=== PATIENT | female | born 1935 | race Caucasian/White ===

== ENCOUNTER 2018-04-19 19:33 | Inpatient (IN) | payer MEDICARE, OTHER ==
[~2018-04-19] VITALS: Ht 167.6 cm; Wt 100.9 kg
--- NOTE | ~2018-04-19 | CN ---
PATIENT NAME:JANICE ISABEL MEDICAL RECORD: [id number] : 39 LOCATION:[facility]12 ADMIT DATE: 04/19/18 ACCOUNT: [id number] CONSULTING PHYSICIAN: HARPAL ESTRADA REFERRING PHYSICIAN: ROWENA AYALA DO DATE OF CONSULTATION: 04/24/2018 HISTORY: This is an 82-year-old female who has had recurrent urinary tract infection of unknown etiology. The patient presented to the Emergency Room with fever and chills. The patient had had nausea and vomiting for 2 days prior to coming to the Emergency Room. The patient was noted to have urinary tract infection and bacteremia. She was started on Rocephin. She was also noted to have left lung pneumonia and small left pleural effusion. The patient was noted to have torsades with ventricular tachycardia and code blue was called. The patient was shocked. The patient woke up and was placed on BiPAP and transferred to the intensive care unit. The patient is awake and alert, on the BiPAP when seen. PAST MEDICAL HISTORY: Remarkable for chronic constipation alternating with diarrhea. She is also on atrial fibrillation, coronary artery disease, and hypertension. Also has hypothyroidism. PAST SURGICAL HISTORY: Include cataracts, hysterectomy, esophageal dilatation, IVC filter, right patellar repair, lumbar laminectomy, and left total knee surgeries. ALLERGIES: No known allergies. MEDICATIONS ON ADMISSION: Include hydrocodone 10/325 q. 8 hours p.r.n., Eliquis 5 mg b.i.d., Pepcid AC 20 mg b.i.d., amiodarone 50 mg daily, lisinopril 10 mg daily, amlodipine 10 mg daily, Januvia 50 mg daily, Lasix 40 mg daily, ferrous sulfate 325 mg daily, ascorbic acid 500 mg daily, fish oil 1000 mg daily, vitamin D3 two capsules daily, TriCor one tablet at bedtime, melatonin 10 mg at bedtime, Protonix 40 mg at bedtime, levothyroxine 25 mcg daily, gabapentin 300 mg t.i.d., Lunesta 2 mg at bedtime. FAMILY HISTORY: Remarkable for coronary artery disease. SOCIAL HISTORY: The patient does not drink or use illicit drugs. The patient used to smoke in the past. REVIEW OF SYSTEMS: Unobtainable because of BiPAP. PHYSICAL EXAMINATION: GENERAL: Reveals elderly female, who is in no acute distress, lying supine in bed. VITAL SIGNS: Temperature 98.2, heart rate of 44, respiratory rate 16, blood pressure 124/74, and saturations 99%. SHEENT: Unremarkable. There is no mottling or livedo. The patient is normocephalic. Pupils are equal and reactive. NECK: Supple. There is no adenopathy. Trachea is midline. CHEST: Shows good airflow bilaterally with mild left crackles. CARDIAC: Shows no jugular venous distention, murmur, or gallop. ABDOMEN: Benign without any tenderness or masses. EXTREMITIES: Show no clubbing, cyanosis, or edema. CONSULT REPORT [id number] ALINA ISABELFLAKITA DIAZ LABORATORY DATA: Lab exam shows white count of 12.3, hemoglobin 10.6, and platelet count is 224. Arterial blood gas; pH 7.42, pCO2 of 35, pO2 of 56 on 5.5 liters. Chemistry is remarkable for sodium of 136, potassium 4.3, creatinine is 1.9. D-dimer is 0.68. Urine culture and blood culture are showing E. coli. DIAGNOSTIC DATA: Chest x-ray showed interval worsening of left-sided pneumonia with left parapneumonic effusion. ASSESSMENT: 1. Cardiopulmonary arrest secondary to torsades. The patient has been on amiodarone. The patient was treated with magnesium with improvement. Chest x-ray showed hypoxemic respiratory failure. This may be due to V-tach, pneumonia, or parapneumonic effusion. The patient is doing well on BiPAP now, but repeat arterial blood gas. 2. Bacteremia. We will obtain plasma lactic acid level. The blood gases were normal. 3. Acute respiratory failure secondary to prerenal because the patient is taking Lasix and also having diarrhea. We will give bolus of normal saline. 4. Pneumonia. We will treat with antibiotics. The patient has a small left pleural effusion. If it increases, the patient will need thoracentesis. 5. Recurrent urinary tract infection, etiology is not known. She may need urologic evaluation. 6. Chronic atrial fibrillation, on anticoagulation. 7. Diabetes mellitus type 2. 8. History of constipation. PLAN: 1. IV bolus of saline. 2. Continue amiodarone for atrial fib as well as anticoagulation. 3. Continue antibiotic, Rocephin. 4. The family wants her to be on DNR, full code status. Total amount of time spent is 60 minutes, talking to nurse and respiratory therapist as well as family at the bedside. TRANSINT:[id number] Voice Confirmation ID: [id number] DOCUMENT ID: [id number] HARPAL ESTRADA at 0836 CC: [id number] DICTATION DATE: 04/24/18 1511 MACHINE ZIPPER TRIMMER: 04/24/18 1729 ADM IN [place] [id number] [place] [address]
--- NOTE | ~2018-04-19 | PN ---
PATIENT:JANICE ISABEL MEDICAL RECORD: [id number] LOCATION:D.ICU D.231 ADMISSION DATE: 04/19/18 PROGRESS NOTE DATE OF SERVICE: 04/28/2018 SUBJECTIVE: This is an 82-year-old female who was admitted with urinary tract infection and bacteremia with Escherichia coli. The patient has also had chronic atrial fibrillation, on amiodarone. The patient had cardiac arrest secondary to V-tach with torsades. The patient was resuscitated, brought to the ICU on BiPAP. The patient complained of chest pain, unable to breathe deep. She was noted to have pulmonary edema, hypertension, was given some fluids. Cardiology consultation was obtained. She had a good left ventricular ejection fraction. The patient was doing well without BiPAP. The patient complained of shortness of breath because of pain. She has been having p.o. Lasix for pulmonary edema and weight has continued to increase. The patient had an uneventful night. There is no fever or chills. PHYSICAL EXAMINATION: GENERAL: Reveals a well-developed, well-nourished female, obese, in no acute distress. VITAL SIGNS: Temperature 99.0, heart rate 61, respiratory rate of 12, blood pressure 180/81, saturation 92%. SHEENT: Unremarkable. NECK: Supple. No adenopathy. Trachea is midline. CHEST: Showed some rales. There is chest wall tenderness. HEART: Shows no jugular venous distention, murmur or gallops. ABDOMEN: Benign, without any tenderness. EXTREMITIES: Shows no clubbing, cyanosis or edema. LABORATORY DATA: Showed a white count of 13.8, hemoglobin is 10, platelet count is 236,000. Arterial blood gas: pH 7.34, pCO2 of 41, pO2 of 70, bicarbonate 22. This is on high-flow nasal cannula. Chest x-ray showed interstitial prominence, has enlarged cardiomediastinal silhouette. ASSESSMENT AND PLAN: 1. Ventricular tachycardia with torsades secondary to infection and medications. 2. Escherichia coli bacteremia. The patient is on antibiotics. The patient still has decreasing leukocytosis. 3. Pulmonary edema, congestive heart failure secondary to transient decrease in left ventricular function. No CPR. 4. Possible pneumonia, unchanged. We will add Levaquin to antibiotics. 5. Hypertension, accelerated. 6. Hydralazine p.r.n. to control blood pressure. TRANSINT:[id number] Voice Confirmation ID: [id number] DOCUMENT ID: [id number] PROGRESS NOTE [id number] JANICE ISABEL AUGUSTINE K at 1418 CC: [id number] DICTATION DATE: 04/28/18 1032 BIOMASS PLANT MANAGER: 04/28/18 1126 ADM IN [facility] [address] [id number]
--- NOTE | ~2018-04-19 | EC ---
PATIENT:JANICE ISABEL DATE OF SERVICE: 04/19/18 SEX: F MEDICAL RECORD: [id number] DATE OF : 37 LOCATION:[place] [address] AGE OF PATIENT: 82 ADMISSION DATE: 04/19/18 REFERRING PHYSICIAN: INTERPRETING PHYSICIAN: PARUL NOLAN MD ECHOCARDIOGRAM REPORT ECHO CHARGES 4 ECHO COMPLETE Date: 04/23 CLINICAL DIAGNOSIS: AFIB ECHOCARDIOGRAPHIC MEASUREMENTS (adult normal given) AC root (d.<3.7cm) 3.7 cm LV Septum d (<1.2 cm> 1.8 cm Valve Excursion 2.0 cm LV Septum (systole) 2.0 cm Left Atria (s.<4.0cm> 4.4 cm LVPW d(<1.2cm) 1.4 cm RV (d.<2.3cm) 4.1 cm LVPW (sytole) 1.6 cm LV diastole(<5.6CM) 5.9 cm MV E-F(>70mm/sec) cm LV systole 4.8 cm LVOT Diameter 2.0 cm MV exc.(>10mm) 1.4 cm Est.ejection fraction (50-75%) % DOPPLER: LVIT cm/sec A cm/sec E 145 cm/sec LA cm/sec RVSP 44 mmHg LVOT 102 cm/sec AOP1/2T m/s Asc. Ao 126 cm/sec RVOT 114 cm/sec RA cm/sec PA 153 cm/sec AV Gradient Peak 6.33 mmHg AV Mean 2.89 mmHg AV Area 2.5 cm MV Gradient Peak 13.41mmHg MV Mean 4.60 mmHg MV Area cm COMMENTS: Tracer Bullet Charging Machine Operator: Yandel PEACOCK Documentation Spec: 1 Dr. Nolan TAPE# PACS Pericardial Effusion N DATE OF SERVICE: 04/23/2018 ECHOCARDIOGRAM FINDINGS: 1. Left ventricular chamber size is mildly dilated. Left ventricular systolic function is markedly reduced. Overall ejection fraction is estimated at 15% to 20%. 2. Left atrium is enlarged at 4.4 cm. Right atrium and right ventricle chamber sizes are as well mildly dilated. ECHOCARDIOGRAM REPORT [id number] JANICE ISABEL 3. Valvular structures have normal structure and motion. 4. Doppler interrogation reveals moderate mitral regurgitation and moderate tricuspid regurgitation. No other valvular insufficiency or stenosis. Pulmonary systolic pressure is estimated at 44 mmHg. 5. No evidence of pericardial effusion or left ventricular thrombus. TRANSINT:[id number] Voice Confirmation ID: [id number] DOCUMENT ID: [id number] PARUL NOLAN MD at 1642 CC: [id number] DICTATION DATE: 04/24/18 1209 COOK STARCH: 04/24/18 1305 ADM IN [place] [place] [address]
--- NOTE | ~2018-04-19 | PN ---
PATIENT:JANICE ISABEL MEDICAL RECORD: [id number] LOCATION:D.[facility] ADMISSION DATE: 04/19/18 PROGRESS NOTE DATE OF SERVICE: 04/29/2018 SUBJECTIVE: This 82-year-old female who was admitted for Escherichia coli bacteremia as well as Escherichia coli urinary tract infection. The patient also had chronic atrial fibrillation, on amiodarone. The patient had a ventricular tachycardia with torsades, was resuscitated and brought to the ICU, on BiPAP. The patient did very well. She was seen by cardiology, was felt to have torsades secondary to medications and bacteremia. The patient has been doing well. She had what appeared to be pulmonary edema, this improvement, and she also has severe chest pain and given pain medications. The patient has been tolerating physical therapy. Her heart rate is also improved. There is no fever or chills. PHYSICAL EXAMINATION: GENERAL: Reveals an awake and alert female who is eating breakfast in bed. VITAL SIGNS: Temperature 98.2, heart rate of 66, respiratory rate of 12, blood pressure 150/66, saturation is 97% on 7 liters. SHEENT: Unremarkable. NECK: Supple. No adenopathy. Trachea is midline. There is no thyromegaly. CHEST: Showed severe chest wall tenderness to palpation. Good air flow bilaterally. There are no rales, crackles, or wheezes. HEART: Shows no jugular venous distention, murmurs, rubs or gallops. ABDOMEN: Benign, without any tenderness. There is no distention, no masses. EXTREMITIES: Shows no clubbing, cyanosis or edema. LABORATORY DATA: Showed, CBC show white count of 14.2, hemoglobin 10.1, platelet count is 386,000. Arterial blood gas: pH 7.37, pCO2 of 42 and pO2 of 71, bicarbonate is 24 on 7 liters high flow oxygen. Chemistry is remarkable for creatinine is 1.6, BUN is 29. Chest x-ray showed interstitial prominence in the lungs, patchy airspace disease is on left mid to lower lung, right base with small pleural effusion with no acute change. ASSESSMENT: 1. Escherichia coli urinary tract infection. 2. Cardiopulmonary arrest secondary to ventricular tach with the torsades syndrome. Has chronic atrial fibrillation, on anticoagulation and amiodarone. 3. Pulmonary edema, switched to IV Lasix. 4. Pneumonia, the patient is currently on antibiotics. DISCUSSION: 1. Neuropsychiatric: There are no focal signs. Mental status is back to normal according to . 2. Cardiovascular: The patient had V-tach, cardiac arrest with torsades. She also has chronic atrial fibrillation and heart rate is normal. She has radiographic evidence of edema. 3. Pulmonary/respiratory: The patient has high flow oxygen requirement at 7 liters. She is on bronchodilators as well as antibiotics for pneumonia. PLAN: 1. IV Lasix 40 mg. 2. Continue physical therapy. PROGRESS NOTE [id number] JANICE ISABEL 3. Pain medications for chest wall pain. 4. Continue Eliquis. Discussed with nurse and at bedside. TRANSINT:[id number] Voice Confirmation ID: [id number] DOCUMENT ID: [id number] HARPAL ESTRADA at 0942 CC: [id number] DICTATION DATE: 04/29/18 0936 YOUTUBER: 04/29/18 1220 ADM IN [place] [id number] [place] [address]
--- NOTE | ~2018-04-19 | HP ---
PATIENT: JANICE ISABEL MEDICAL RECORD: [id number] ACCOUNT: [id number] LOCATION:D.[facility] : 37 ADMISSION DATE: 04/19/18 HISTORY AND PHYSICAL EXAMINATION HISTORY OF PRESENT ILLNESS: An 82-year-old female presents with 2 days of fever, chills, episodic nausea and vomiting, diffuse abdominal pain, constipation. PAST MEDICAL HISTORY: Significant for chronic AFib, diabetes, hyperlipidemia, GERD, hypothyroid, hypertension, chronic kidney disease, chronic back pain, sees pain management. ALLERGIES: No known drug allergies. MEDICATIONS: As per med list. REVIEW OF SYSTEMS: GENERAL: Loss of appetite with acute illness. Denies any significant change in weight. HEENT: No cephalgia, visual changes, tinnitus, epistaxis, or dysphagia. CARDIOVASCULAR: Denies chest pain. History of chronic atrial fibrillation. PULMONARY: Denies hemoptysis. Admits mild shortness of breath, nonproductive cough. GASTROINTESTINAL: Denies hematemesis, hematochezia or melena. Does admit constipation. GENITOURINARY: Burning with urination. MUSCULOSKELETAL: Chronic back pain. No acute changes. ENDOCRINE: Denies polyuria, polydipsia, or polyphagia. PHYSICAL EXAMINATION: VITAL SIGNS: Temperature on admission 102.2, presently 98.4, blood pressure 154/54, heart rate 84, respirations 18, O2 sats 98%, O2 sats on admission were 85%. NEUROLOGIC: The patient is alert, oriented. HEENT: Normocephalic, atraumatic. Eyes: Pupils are equally round and reactive to light and accommodation. Extraocular muscles are intact. Conjunctivae not injected. Ears: Canals patent, TMs are intact. Nose: Nares patent without drainage. Throat: No erythema, no exudates. NECK: Supple. No lymphadenopathy, no JVD. HEART: Irregularly irregular. LUNGS: Clear to auscultation bilaterally. Breathing is nonlabored. She has completed a breathing treatment. ABDOMEN: Soft, nontender. Bowel sounds positive. EXTREMITIES: Present times 4. NEUROLOGIC: Intact. No focal deficits. SKIN: Warm and dry. No rash. LABORATORY AND DIAGNOSTIC DATA: Lactic acid is mildly elevated at 2.1. ABG: pH of 7.42, pCO2 of 34, pO2 of 56. Urinalysis; yellow, hazy, 2+ blood, 2+ leukocyte esterase and many bacteria. D-dimer mildly elevated at 0.68. V/Q scan negative for any perfusion defects. Chemistry shows a sodium of 138, potassium 4.1, chloride 102, bicarbonate 22.4, BUN 39, creatinine 2.3, glucose is 209. CK is 28, CK-MB is 0.8, troponin is 0.055. ProBNP elevated at 9481. Amylase is 20, lipase 84. CBC: White count 11.2, hemoglobin 11.5, hematocrit HISTORY AND PHYSICAL [id number] CHALO,JANICE EMILY 35.8, platelets 192. Blood cultures; gram-negative gabriela. Urine culture with gram-negative gabriela. ASSESSMENT AND PLAN: 1. Sepsis secondary to urinary tract infection. The patient was started on Levaquin. In the Emergency Room, this is changed to Rocephin due to QT prolongation of Levaquin and her cardiac arrhythmia. Cautious IV fluids. We will place on telemetry. We will obtain CT of the abdomen and pelvis. 2. Constipation. Milk of mag p.r.n. 3. Chronic atrial fibrillation. Continue current medications. 4. Chronic kidney disease, monitor. 5. Possible early pneumonia. Rocephin as above. Awaiting sensitivities from cultures. 6. Diabetes. We will hold Januvia, change to sliding scale insulin, low resistance. 7. Hypothyroid, resume levothyroxine 25 mcg daily. 8. With her chronic atrial fibrillation, we will also place on telemetry. TRANSINT:[id number] Voice Confirmation ID: [id number] DOCUMENT ID: [id number] ROWENA AYALA DO at 1733 CC: [id number] DICTATION DATE: 04/20/18813 GEOTECHNICAL ENGINEER: 04/20/18 0920 ADM IN [facility] [address] [place] [address]
--- NOTE | ~2018-04-19 | PN ---
PATIENT:JANICE ISABEL MEDICAL RECORD: [id number] LOCATION:D.[facility] ADMISSION DATE: 04/19/18 PROGRESS NOTE DATE OF SERVICE: 04/30/2018 This is an 82-year-old female who was admitted for Escherichia coli urinary tract infection and bacteremia. The patient was treated with antibiotics, subsequently had cardiopulmonary arrest with ventricular tachycardia with torsades. The patient was resuscitated and brought into the intensive care unit and was placed on BiPAP. The patient did well. She had pulmonary edema, at that time was given Lasix with clearance. The patient also had bradycardia, which has improved. The patient was transferred to the medical floor and has been doing well. The patient has some mild chest pain from percussion and doing CPR. She denies any shortness of breath. There is no fever. PHYSICAL EXAMINATION: GENERAL: She is an elderly lady who is in no acute distress. VITAL SIGNS: Temperature 98.1, heart rate 73, respiratory rate of 16, blood pressure of 156/59. SHEENT: Unremarkable. NECK: Supple, no adenopathy. Trachea is midline. LUNGS: Exam shows anterior chest wall tenderness. There is no accessory muscle use. There are no rales. HEART: Exam shows no jugular venous distention, no murmur or gallop. ABDOMEN: Benign, without any tenderness or masses. EXTREMITIES: No clubbing, cyanosis or edema. LABORATORY DATA: White count 10.1, hemoglobin 9.7, and platelet count is 217,000. Chemistry is remarkable except for creatinine 1.5. BUN is 27. Chest x-ray shows significant improvement in congestive heart failure. ASSESSMENT: 1. Escherichia coli bacteremia and urinary tract infection. 2. Status post cardiopulmonary arrest secondary to ventricular tachycardia and torsades. The patient improved. There was no encephalopathy or any sequelae. 3. Chronic atrial fibrillation. The patient's rate is normal. PLAN: 1. Continue antibiotics. 2. Pain medications for chest wall pain. 3. Continue full anticoagulation. 4. Physical therapy for ambulation. TRANSINT:[id number] Voice Confirmation ID: [id number] DOCUMENT ID: [id number] PROGRESS NOTE [id number] JANICE ISABELYCE HARPAL ESTRADA at 0808 CC: [id number] DICTATION DATE: 04/30/18 1631 MANAGER MEDIA RELATIONS: 04/30/18 2234 ADM IN [facility] [address] [id number]
--- NOTE | ~2018-04-19 | PN ---
PATIENT:JANICE ISABEL MEDICAL RECORD: [id number] LOCATION:D.[facility] D.231 ADMISSION DATE: 04/19/18 PROGRESS NOTE DATE OF SERVICE: 04/25/2018 SUBJECTIVE: This is an 82-year-old female who was admitted for urinary tract infection and pneumonia with Escherichia coli in blood cultures as well as urine. The patient had sudden onset of V-tach with torsade. The patient was resuscitated with a magnesium as well as CPR. The patient was transferred to the intensive care unit. The patient has been bradycardic, but blood pressure has been good. Dopamine was ordered to increase heart rate. The patient has been awake and alert this morning. She was seen by cardiology and felt torsade was probably due to an infectious process. Echo will be done and reassessed. The patient's bradytachy arrhythmia has been for a while, being treated with amiodarone as well as anticoagulation. The patient is awake and alert, answers questions. She is off BiPAP this morning. PHYSICAL EXAMINATION: GENERAL: Reveals an elderly female, obese, in no acute distress. VITAL SIGNS: Temperature 98.9, heart rate of 51, respiratory rate of 12, blood pressure 105/61, saturation is 97%. SHEENT: Unremarkable. The patient is normocephalic. Pupils are equal and reactive. NECK: Supple. There is no adenopathy. Trachea is midline. CHEST: Shows some chest wall tenderness on palpation. There are some mild crackles on coughing. CARDIAC: Shows no jugular venous distention, murmur or gallops. ABDOMEN: Benign, without any tenderness or mass or distention. EXTREMITIES: Shows no clubbing, cyanosis or edema. LABORATORY DATA: Showed a white count of 12.3, hemoglobin 10.6 and platelet count of 224. Blood gas: pH 7.41, pCO2 of 38, pO2 of 109 on 100% FiO2 on BiPAP. Chemistry is remarkable for potassium 3.9, creatinine is 1.18. Chest x-ray showed diffuse increase in interstitial and alveolar infiltrates throughout the lungs, mild focal infiltrates in the left upper lobe of the lung with increase in prominence from prior examination, moderate left pleural effusion. ASSESSMENT: 1. Ventricular tachycardia secondary to torsades as stated. 2. Escherichia coli bacteremia. 3. Urinary tract infection with Escherichia coli. 4. Pulmonary edema. 5. Tachybrady arrhythmias. DISCUSSION: 1. Neuropsychiatry: There is no evidence of encephalopathy and there are no focal signs. 2. Cardiovascular: The patient has tachybrady arrhythmias. Currently, is on amiodarone. Cardiology has been consulted. Echocardiogram will be ordered and reviewed. 3. Pulmonary/respiratory: The patient is on bronchodilators. She is also on BiPAP as needed at night. PROGRESS NOTE [id number] CHALO,JANICE DIAZ PLAN: 1. Continue bronchodilators. 2. Continue antibiotics. 3. Continue anticoagulation. TRANSINT:[id number] Voice Confirmation ID: [id number] DOCUMENT ID: [id number] HARPAL ESTRADA at 0836 CC: [id number] DICTATION DATE: 04/25/18 1306 TANK BOTTOM ASSEMBLER: 04/25/18 1424 ADM IN [place] [id number] [place] [address]
--- NOTE | ~2018-04-19 | EC ---
PATIENT:JANICE ISABEL DATE OF SERVICE: 04/19/18 SEX: F MEDICAL RECORD: [id number] DATE OF : 37 LOCATION:[place] [address] AGE OF PATIENT: 82 ADMISSION DATE: 04/19/18 REFERRING PHYSICIAN: INTERPRETING PHYSICIAN: VALERIANO EVERETT MD ECHOCARDIOGRAM REPORT ECHO CHARGES 5 ECHO LIMITED Date: 04/25 CLINICAL DIAGNOSIS: REASSESS EF AND WALL MOTION ABNORMALITIES ECHOCARDIOGRAPHIC MEASUREMENTS (adult normal given) AC root (d.<3.7cm) 3.7 cm LV Septum d (<1.2 cm> 1.9 cm Valve Excursion 2.0 cm LV Septum (systole) 2.0 cm Left Atria (s.<4.0cm> 3.4 cm LVPW d(<1.2cm) 1.9 cm RV (d.<2.3cm) 4.1 cm LVPW (sytole) 1.6 cm LV diastole(<5.6CM) 5.5 cm MV E-F(>70mm/sec) cm LV systole 3.9 cm LVOT Diameter 2.0 cm MV exc.(>10mm) 1.4 cm Est.ejection fraction (50-75%) % DOPPLER: LVIT cm/sec A cm/sec E 145 cm/sec LA cm/sec RVSP 44 mmHg LVOT 102 cm/sec AOP1/2T m/s Asc. Ao 126 cm/sec RVOT 114 cm/sec RA cm/sec PA 153 cm/sec AV Gradient Peak 6.33 mmHg AV Mean 2.89 mmHg AV Area 2.5 cm MV Gradient Peak 13.41mmHg MV Mean 4.60 mmHg MV Area cm COMMENTS: Paring Machine Operator: 2 LAINA PEACOCK Technical Support Consultant: 4 Dr. Everett TAPE# PACS Pericardial Effusion N DATE OF SERVICE: FINDINGS: The patient had a limited echocardiogram to assess left ventricular function with a transthoracic echocardiogram. The patient's LV function appears to be significantly improved from previous; however, the previous one was very poor imaging, so it may not represent an improvement, but the function is 55%. There are no distinct wall motion abnormalities. There is evidence of left ventricular hypertrophy. There is no pericardial effusion. The RV is dilated and there is RVH, but good wall motion. The IVC is dilated indicating likely mild elevation in CVP. ECHOCARDIOGRAM REPORT [id number] JANICE ISABEL TRANSINT:[id number] Voice Confirmation ID: [id number] DOCUMENT ID: [id number] VALERIANO EVERETT MD at 1458 CC: [id number] DICTATION DATE: 04/26/18 0854 POULTRYMAN: 04/26/18 1157 ADM IN [id number] [place] [address]
--- NOTE | ~2018-04-19 | CN ---
PATIENT NAME:JANICE LOPEZ MEDICAL RECORD: [id number] : 39 LOCATION:[facility].2312 ADMIT DATE: 04/19/18 ACCOUNT: [id number] CONSULTING PHYSICIAN: PARUL RÍOS MD REFERRING PHYSICIAN: ROWENA AYALA DO DATE OF CONSULTATION: 04/23/2018 DIAGNOSES: 1. Atrial fibrillation with rapid response. 2. Pneumonia. 3. Abnormal electrocardiogram. 4. Hypertension. HISTORY OF PRESENT ILLNESS: Mrs. Lopez is admitted with pneumonia, found to be in and out of atrial fibrillation with rapid ventricular response. She is on amiodarone at 50 mg daily. Her heart rates are in the 30s. She does not have any chest pain or chest discomfort. Her initial troponin was borderline elevated and her EKG is abnormal. PHYSICAL EXAMINATION: GENERAL APPEARANCE: Well nourished, well developed, appears stated age. Level of distress, comfortable. PSYCHIATRIC: Mental status, alert, normal affect. Orientation, oriented to time, place and person. EYES: Lids and conjunctivae, noninjected. No discharge, no pallor. ENT: Lips, teeth, gums, normal dentition. Oropharynx, no cyanosis, no pallor. NECK: Carotid arteries, bilateral normal upstroke, no bruits, no thrills. JUGULAR VEINS: No jugular venous pressure or distention. CERVICAL LYMPH NODES: Nontender, nonenlarged. THYROID: Not enlarged. Nontender. No nodules. LUNGS: Respiratory effort, unlabored. CHEST: Normal curvature. No thoracic deformity. No chest wall tenderness. Percussion, resonant. Auscultation, clear. No wheezes, no rales, no rhonchi. CARDIOVASCULAR: Precordial exam, nondisplaced. No heaves or pericardial thrills. Rate and rhythm, regular. Heart sounds, normal S1, normal S2. No S3, no gallop, no rub. Systolic murmur, not heard. Diastolic murmur, not heard. EXTREMITIES: No cyanosis, no edema. Peripheral pulses, full and equal in all extremities, except as noted. No bruits appreciated. ABDOMEN: Soft, nondistended. Normal aorta. No bruit. Nontender. No masses. Liver, nontender, no hepatomegaly. Spleen, nontender, no splenomegaly. MUSCULOSKELETAL: No joint tenderness. No joint swelling. No erythema. NEUROLOGICAL: Normal gait, normal strength, normal tone. SKIN: Warm and dry. OVERALL IMPRESSION: Atrial fibrillation. We will discontinue the small dose of amiodarone, put her on sotalol 120 mg b.i.d. Repeat troponin. We will get an echo and get an EKG. TRANSINT:[id number] Voice Confirmation ID: [id number] DOCUMENT ID: [id number] CONSULT REPORT [id number] JANICE LOPEZ JEFFREY MD at 1642 CC: [id number] DICTATION DATE: 04/23/18 1113 PET GROOMER: 04/23/18 1232 ADM IN [place] [id number] [place] [id number]
--- NOTE | ~2018-04-19 | PN ---
PATIENT:JANICE ISABEL MEDICAL RECORD: [id number] LOCATION:D.ICU D.231 ADMISSION DATE: 04/19/18 PROGRESS NOTE DATE OF SERVICE: 04/27/2018 SUBJECTIVE: This is an 82-year-old female who was admitted for urinary tract infection and E. coli bacteremia. The patient was on antibiotics on the floor. She has also had chronic atrial fibrillation treated with amiodarone p.o. The patient sustained cardiopulmonary arrest with V-tach, which appeared torsades syndrome. The patient was resuscitated and transferred to the intensive care unit on BiPAP. It was unclear at that time whether the patient was to be intubated, but family discussed, the patient was put on FULL CODE. The patient did well. She is currently on high-flow oxygen. She has severe chest pain from the CPR and is unable to breath deep. Chest x-ray showed possible edema. IV fluids were stopped this morning. PHYSICAL EXAMINATION: GENERAL: An elderly female who is awake and alert, talking and doing physical therapy. VITAL SIGNS: Temperature 98.4, heart rate of 62, respiratory rate of 17, blood pressure 142/79. SHEENT: Unremarkable. NECK: Supple. No adenopathy. Trachea is midline. There is no thyromegaly. There is no tenderness. LUNGS: Shows chest wall tenderness. Mild rales. HEART: Shows no jugular venous distention. No murmur or gallops. ABDOMEN: Benign. EXTREMITIES: No clubbing, cyanosis or edema. Weight showed 1 pound of weight gain. LABORATORY DATA: White count 7.9, hemoglobin 9.7, and platelet count of 224,000. Chemistry showed a creatinine of 2.2. Sodium was 137. Chest x-ray read as congestive heart failure. ASSESSMENT: 1. Cardiopulmonary arrest secondary to ventricular tachycardia, torsades, probably secondary to infection, bacteremia and medications. 2. Escherichia coli urinary tract infection. 3. Bacteremia with urinary tract infection. 4. Chronic atrial fibrillation. 5. Acute renal injury. 6. Congestive heart failure. PLAN: 1. Lasix 40 mg times 1. 2. Continue bronchodilators. 3. Pain control with chest pain. TRANSINT:[id number] Voice Confirmation ID: [id number] DOCUMENT ID: [id number] PROGRESS NOTE [id number] JANICE ISABEL HARPAL ESTRADA at 0802 CC: [id number] DICTATION DATE: 04/27/18 1823 FLIGHT CREW ORDNANCEMAN: 04/28/18 0435 ADM IN [facility] [address] [place] [id number]
--- NOTE | ~2018-04-19 | PN ---
PATIENT:JANICE ISABEL MEDICAL RECORD: [id number] LOCATION:D.[facility] D.231 ADMISSION DATE: 04/19/18 PROGRESS NOTE DATE OF SERVICE: 04/26/2018 SUBJECTIVE: This is an 82-year-old female, who was admitted for bacteremia and urinary tract infection with E. coli. The patient had also had history of chronic atrial fibrillation. The patient had a V-tach arrest and was resuscitated and brought to the ICU without intubation. This was felt to be due to infection and combination of other medications. There was no medication to prolong QT. The patient's echocardiogram appeared normal. The patient has been doing well, awake and alert. She has some chest pain from percussion during CPR. Denies any shortness of breath. Had decreased appetite. No fever or chills. PHYSICAL EXAMINATION: GENERAL: Elderly female, who is in no acute distress. VITAL SIGNS: Temperature 98.2, heart rate of 52, respiratory rate of 20, blood pressure of 87/64. SHEENT: Unremarkable. Normocephalic. Pupils are equal and reactive. NECK: Supple. There is no adenopathy. Trachea is midline. CHEST: Showed tenderness to palpation. CARDIAC: Shows no jugular venous distention, murmur, or gallops. ABDOMEN: Benign, without any tenderness or mass. EXTREMITIES: Shows no clubbing, cyanosis, or edema. NEUROLOGIC: There are no focal signs. Mental status is improving. LABORATORY DATA: Lab exam showed white count of 14.4, hemoglobin 9.5, and platelet count 223,000. Blood gas; pH 7.35, pCO2 of 36, and pO2 of 48. Her chemistry showed calcium of 7.8, phosphorus is 5.4, albumin is 2.3 prior to calcium. KUB showed no acute abdominal abnormality. Chest x-ray showed interstitial and alveolar airspace disease consistent with history of edema. There is persistent left pleural effusion. ASSESSMENT: 1. Status post cardiopulmonary arrest with ventricular tachycardia secondary to torsades. Most probably secondary to infection. 2. Escherichia coli bacteremia secondary to urinary tract infection. 3. Urinary tract infection. 4. Pulmonary edema. The patient still having IV fluids. We will decrease to keep open. 5. Chronic atrial fibrillation with tachy-amy arrhythmias. DISCUSSION: NEUROPSYCHIATRIC: The patient's mental status is improved and improving. There are no focal signs. CARDIOVASCULAR: The patient has tachy-amy arrhythmias with atrial fibrillation. The patient is on amiodarone and she has bradycardia at this time. PULMONARY/RESPIRATORY: The patient has pulmonary edema. We will decrease IV fluids. Continue bronchodilators. GASTROINTESTINAL/DIETARY: The patient will be encouraged to increase diet. RENAL/METABOLIC: The patient has increase in creatinine level. The patient needs dialysis. Renal consult to be obtained. PROGRESS NOTE [id number] JANICE ISABEL PLAN: 1. Decrease IV to keep open. 2. Continue bronchodilators. 3. Continue anticoagulation. 4. TSH levels. 5. Continue to encourage food intake. 6. We will start physical therapy for strengthening. TRANSINT:[id number] Voice Confirmation ID: [id number] DOCUMENT ID: [id number] HARPAL ESTRADA at 1241 CC: [id number] DICTATION DATE: 04/26/18 1209 CHILD CUSTODY EVALUATOR: 04/26/18 1345 ADM IN [place] [id number] [place] [address]
[~2018-04-19 19:33] MED LIST: ASCORBIC ACID500 MG PO; BAYER CHEWABLE81 MG PO; COUMADIN4 MG PO; COUMADIN6 MG PO; FERROUS SULFAT325 MG PO; FISH OIL 1,0001 CA1 PO; GEMFIBROZIL600 MG PO; HYDROCODON-ACE1 EAC7 PO; HYDROCODONE-APA1 TAB PO; JANUVIA50 MG PO; LASIX40 MG PO; LISINOPRIL10 MG PO; LUNESTA2 M1 PO; MELATONIN 3 MG1 TAB PO; NEURONTIN 300300 MG PO; NEXIUM40 MG PO; NORVASC10 MG PO; PACERONE100 MG PO; PEPCID40 MG PO; PERCOCET 10/3251 TA1 PO; SAVELLA25 MG PO; VITAMIN D31000 UNIT PO
[2018-04-19] MEDS ORDERED: TRICOR145 MG PO ×2 (19:45→19:46)
[2018-04-19] MEDS ORDERED: PROTONIX40 MG PO (19:47)
[2018-04-19] MEDS ORDERED: ARMOUR THYROID60 M1 (19:47)
[2018-04-19 20:38] LABS: BASOPHILS 0.1 % (0-2); EOSINOPHILS 0.1 % (0-7); HEMATOCRIT 35.8 % (36.0-48.0); HEMOGLOBIN 11.5 g/dL (12-16); IMMATURE GRANULOCYTES 0.3 % (0-5); LYMPHOCYTES 8.5 % (15-50); MCH 30.3 pg (26.0-34.0); MCHC 32.1 g/dL (31.0-37.0); MCV 94.5 fL (80.0-100.0); MEAN PLATELET VOLUME 11.4 fL (7.4-10.4); MONOCYTES 8.6 % (2-11); NEUTROPHILS 82.4 % (40-80); RBC 3.79 10x6/uL (4.00-5.40); WBC 11.2 10x3/uL (4.8-10.8)
[2018-04-19 20:40] LABS: PLATELET COUNT 192 10x3/uL (130-400)
[2018-04-19 20:59] LABS: APPEARANCE HAZY (CLEAR); BILIRUBIN NEGATIVE (NEGATIVE); COLOR DK YELLOW (YELLOW); GLUCOSE NEGATIVE (NEGATIVE); KETONE NEGATIVE (NEGATIVE); NITRITE NEGATIVE (NEGATIVE); PROTEIN TRACE mg/dL (NEGATIVE); SPECIFIC GRAVITY 1.015 (1.005-1.020); UROBILINOGEN NORMAL (NORMAL)
[2018-04-19 21:00] LABS: BACTERIA MANY /hpf (NONE SEEN); RED CELLS - URINE 0-5 /hpf (0-5); WHITE CELLS - URINE 25-50 /hpf (0-5)
[2018-04-19 21:02] LABS: ALBUMIN 3.2 g/dL (3.4-5.0); ALKALINE PHOSPHATASE 55 U/L (46-116); ALT (SGPT) 22 U/L (10-68); BILIRUBIN - TOTAL 0.69 mg/dL (0.2-1.3); CALC OSMOLALITY 290 mosm/kg (275-300); CALCIUM 8.3 mg/dL (8.5-10.1); CARBON DIOXIDE 22.4 mmol/L (21.0-32.0); CHLORIDE - SERUM 102 mmol/L (98-107); CREATININE - SERUM 2.3 mg/dL (0.6-1.3); POTASSIUM - SERUM 4.1 mmol/L (3.5-5.1); PROTEIN - SERUM 6.9 g/dL (6.4-8.2); SODIUM 138 mmol/L (136-145); UREA NITROGEN 39 mg/dL (7-18); eGFR NON AFRICAN AMERICAN 22 mL/min (90-120)
[2018-04-19 21:17] LABS: GLUCOSE 209 mg/dL (74-106)
[2018-04-19 21:18] LABS: AMYLASE - SERUM 20 U/L (25-115); CKMB 0.8 U/L (0.0-3.6); CREATINE KINASE 28 UL (21-215); LIPASE 84 U/L (73-393); PRO BNP 9481 pg/mL (0-450); TROPONIN-I 0.055 ng/mL (0.000-0.060)
[2018-04-20 04:42] VITALS: BP 154/54
[2018-04-20 08:28] VITALS: BP 138/54
[2018-04-20] MEDS ORDERED: NEURONTIN 300300 MG PO (08:47)
[2018-04-20] MEDS ORDERED: SAVELLA25 MG PO (08:50)
[2018-04-20] MEDS ORDERED: ELIQUIS5 MG PO (08:50)
[2018-04-20] MEDS ORDERED: HYDROCODONE-APA1 TAB PO (08:50)
[2018-04-20] MEDS ORDERED: PEPCID AC20 MG PO (08:51)
[2018-04-20] MEDS ORDERED: PACERONE100 MG PO (08:52)
[2018-04-20] MEDS ORDERED: LISINOPRIL10 MG PO (08:53)
[2018-04-20] MEDS ORDERED: NORVASC10 MG PO (08:54)
[2018-04-20] MEDS ORDERED: JANUVIA50 MG PO (08:55)
[2018-04-20] MEDS ORDERED: FUROSEMIDE40 MG PO (08:55)
[2018-04-20] MEDS ORDERED: FERROUS SULFAT325 MG PO (08:56)
[2018-04-20] MEDS ORDERED: ASCORBIC ACID500 MG PO (08:56)
[2018-04-20] MEDS ORDERED: FISH OIL 1,0001 CA1 PO (08:58)
[2018-04-20] MEDS ORDERED: VITAMIN D31000 UNIT PO (09:00)
[2018-04-20] MEDS ORDERED: PROTONIX40 MG PO ×2 (09:02→09:28)
[2018-04-20] MEDS ORDERED: LUNESTA2 M1 PO (09:03)
[2018-04-20] MEDS ORDERED: MELATONIN10 M1 PO (09:12)
[2018-04-20] MEDS ORDERED: TRICOR145 MG PO (09:12)
[2018-04-20] MEDS ORDERED: SYNTHROID25 MCG PO (09:31)
[2018-04-20 13:35] VITALS: BP 124/56
[2018-04-20 14:16] VITALS: BMI 33.1
[2018-04-20 16:42] VITALS: BP 114/60
[2018-04-20 20:36] VITALS: BP 138/42
[2018-04-21 04:40] VITALS: BP 138/42; BMI 33.0
[2018-04-21 04:47] LABS: BASOPHILS 0.1 % (0-2); EOSINOPHILS 1.2 % (0-7); HEMOGLOBIN 10.2 g/dL (12-16); IMMATURE GRANULOCYTES 0.4 % (0-5); LYMPHOCYTES 10.2 % (15-50); MCH 29.1 pg (26.0-34.0); MCHC 30.9 g/dL (31.0-37.0); MEAN PLATELET VOLUME 11.5 fL (7.4-10.4); MONOCYTES 7.9 % (2-11); NEUTROPHILS 80.2 % (40-80); RBC 3.51 10x6/uL (4.00-5.40); RDW 13.9 % (11.5-14.5); WBC 9.4 10x3/uL (4.8-10.8)
[2018-04-21 04:56] VITALS: BP 131/37
[2018-04-21 04:59] LABS: ALBUMIN 2.6 g/dL (3.4-5.0); BILIRUBIN - TOTAL 0.29 mg/dL (0.2-1.3); CALCIUM 8.4 mg/dL (8.5-10.1); CARBON DIOXIDE 26.1 mmol/L (21.0-32.0); CREATININE - SERUM 1.9 mg/dL (0.6-1.3); MAGNESIUM - SERUM 1.9 mg/dL (1.8-2.4); PHOSPHOROUS 3.6 mg/dL (2.5-4.9); POTASSIUM - SERUM 4.1 mmol/L (3.5-5.1); PROTEIN - SERUM 6.2 g/dL (6.4-8.2)
[2018-04-21 05:18] LABS: PLATELET COUNT 144 10x3/uL (130-400)
[2018-04-21 08:46] VITALS: BP 154/67
[2018-04-21 13:24] VITALS: Ht 167.6 cm; Wt 100.9 kg
[2018-04-21 20:18] VITALS: BP 140/49
[2018-04-22 04:16] VITALS: BP 142/60
[2018-04-22 05:03] LABS: BASOPHILS 0.1 % (0-2); HEMATOCRIT 33.3 % (36.0-48.0); HEMOGLOBIN 10.6 g/dL (12-16); IMMATURE GRANULOCYTES 0.3 % (0-5); LYMPHOCYTES 10.6 % (15-50); MCH 29.9 pg (26.0-34.0); MCHC 31.8 g/dL (31.0-37.0); MCV 94.1 fL (80.0-100.0); MEAN PLATELET VOLUME 11.6 fL (7.4-10.4); MONOCYTES 9.5 % (2-11); NEUTROPHILS 78.5 % (40-80); RBC 3.54 10x6/uL (4.00-5.40); RDW 13.9 % (11.5-14.5)
[2018-04-22 05:11] LABS: PLATELET COUNT 181 10x3/uL (130-400)
[2018-04-22 05:21] LABS: ANION GAP 10.4 mmol/L (8-16); CALCIUM 8.7 mg/dL (8.5-10.1); CARBON DIOXIDE 26.3 mmol/L (21.0-32.0); CREATININE - SERUM 1.5 mg/dL (0.6-1.3); POTASSIUM - SERUM 3.7 mmol/L (3.5-5.1)
[2018-04-22 10:32] VITALS: BP 164/61
[2018-04-22 14:33] VITALS: BP 116/57
[2018-04-22 19:11] VITALS: BP 151/91
[2018-04-22 20:16] VITALS: BP 121/64
[2018-04-23 01:11] VITALS: BP 134/74
[2018-04-23 03:47] LABS: BASOPHILS 0.2 % (0-2); EOSINOPHILS 0.6 % (0-7); HEMATOCRIT 37.6 % (36.0-48.0); HEMOGLOBIN 11.9 g/dL (12-16); IMMATURE GRANULOCYTES 0.8 % (0-5); LYMPHOCYTES 16.4 % (15-50); MCH 29.7 pg (26.0-34.0); MCHC 31.6 g/dL (31.0-37.0); MCV 93.8 fL (80.0-100.0); MEAN PLATELET VOLUME 11.5 fL (7.4-10.4); MONOCYTES 7.8 % (2-11); NEUTROPHILS 74.2 % (40-80); RBC 4.01 10x6/uL (4.00-5.40); RDW 13.9 % (11.5-14.5)
[2018-04-23 03:52] LABS: PLATELET COUNT 308 10x3/uL (130-400); WBC 12.5 10x3/uL (4.8-10.8)
[2018-04-23 04:24] LABS: ALBUMIN 2.6 g/dL (3.4-5.0); ANION GAP 13.5 mmol/L (8-16); BILIRUBIN - TOTAL 0.43 mg/dL (0.2-1.3); CALCIUM 8.9 mg/dL (8.5-10.1); CARBON DIOXIDE 27.8 mmol/L (21.0-32.0); CREATININE - SERUM 1.5 mg/dL (0.6-1.3); POTASSIUM - SERUM 3.3 mmol/L (3.5-5.1); PROTEIN - SERUM 6.9 g/dL (6.4-8.2)
[2018-04-23 04:30] VITALS: BP 124/84
[2018-04-23 09:37] VITALS: BP 137/67
[2018-04-23 10:36] LABS: POTASSIUM - SERUM 3.7 mmol/L (3.5-5.1); TROPONIN-I 0.016 ng/mL (0.000-0.060)
[2018-04-23 14:35] VITALS: BP 134/74
[2018-04-23 16:50] VITALS: BP 127/72
[2018-04-23 20:35] VITALS: BP 160/59
[2018-04-24] VITALS (13 sets, daily range): BP systolic 92–154; BP diastolic 42–74
[2018-04-24 03:53] LABS: BASOPHILS 0.2 % (0-2); EOSINOPHILS 1.4 % (0-7); HEMATOCRIT 32.8 % (36.0-48.0); HEMOGLOBIN 10.4 g/dL (12-16); IMMATURE GRANULOCYTES 1.2 % (0-5); LYMPHOCYTES 14.9 % (15-50); MCH 29.5 pg (26.0-34.0); MCHC 31.7 g/dL (31.0-37.0); MCV 92.9 fL (80.0-100.0); MONOCYTES 9.2 % (2-11); NEUTROPHILS 73.1 % (40-80); PLATELET COUNT 302 10x3/uL (130-400); RBC 3.53 10x6/uL (4.00-5.40); RDW 13.8 % (11.5-14.5); WBC 12.2 10x3/uL (4.8-10.8)
[2018-04-24 04:14] LABS: ALBUMIN 2.5 g/dL (3.4-5.0); ANION GAP 13.4 mmol/L (8-16); BILIRUBIN - TOTAL 0.28 mg/dL (0.2-1.3); CALCIUM 8.6 mg/dL (8.5-10.1); CARBON DIOXIDE 26.3 mmol/L (21.0-32.0); CREATININE - SERUM 1.6 mg/dL (0.6-1.3); POTASSIUM - SERUM 3.7 mmol/L (3.5-5.1); PROTEIN - SERUM 6.3 g/dL (6.4-8.2)
[2018-04-24 14:36] LABS: BASOPHILS 0.2 % (0-2); EOSINOPHILS 1.5 % (0-7); HEMATOCRIT 33.3 % (36.0-48.0); HEMOGLOBIN 10.6 g/dL (12-16); IMMATURE GRANULOCYTES 1.5 % (0-5); LYMPHOCYTES 18.7 % (15-50); MCH 29.9 pg (26.0-34.0); MCHC 31.8 g/dL (31.0-37.0); MCV 93.8 fL (80.0-100.0); MEAN PLATELET VOLUME 11.1 fL (7.4-10.4); MONOCYTES 9.2 % (2-11); NEUTROPHILS 68.9 % (40-80); PLATELET COUNT 324 10x3/uL (130-400); RBC 3.55 10x6/uL (4.00-5.40); RDW 13.7 % (11.5-14.5); WBC 12.3 10x3/uL (4.8-10.8)
[2018-04-24 14:37] LABS: ALBUMIN 2.5 g/dL (3.4-5.0); ALKALINE PHOSPHATASE 48 U/L (46-116); BILIRUBIN - TOTAL 0.31 mg/dL (0.2-1.3); CALCIUM 8.2 mg/dL (8.5-10.1); CARBON DIOXIDE 23.5 mmol/L (21.0-32.0); CHLORIDE - SERUM 102 mmol/L (98-107); CREATININE - SERUM 1.9 mg/dL (0.6-1.3); PROTEIN - SERUM 5.7 g/dL (6.4-8.2); SODIUM 136 mmol/L (136-145); eGFR NON AFRICAN AMERICAN 27 mL/min (90-120)
[2018-04-24 14:38] LABS: ALT (SGPT) 24 U/L (10-68); CALC OSMOLALITY 284 mosm/kg (275-300); GLUCOSE 257 mg/dL (74-106); POTASSIUM - SERUM 4.3 mmol/L (3.5-5.1); UREA NITROGEN 25 mg/dL (7-18)
[2018-04-24 14:48] LABS: CKMB 1.2 U/L (0.0-3.6); CREATINE KINASE 49 UL (21-215); MAGNESIUM - SERUM 2.7 mg/dL (1.8-2.4); TROPONIN-I 0.018 ng/mL (0.000-0.060)
[2018-04-25] VITALS (39 sets, daily range): BP systolic 83–133; BP diastolic 42–91
[2018-04-25 12:01] LABS: CKMB 2.9 U/L (0.0-3.6)
[2018-04-25 12:22] LABS: CREATINE KINASE 393 UL (21-215)
[2018-04-25 12:24] LABS: TROPONIN-I 0.061 ng/mL (0.000-0.060)
[2018-04-25 17:57] LABS: CKMB 2.1 U/L (0.0-3.6); TROPONIN-I 0.032 ng/mL (0.000-0.060)
[2018-04-25 18:00] LABS: CREATINE KINASE 269 UL (21-215)
[2018-04-25 22:47] LABS: CKMB 1.5 U/L (0.0-3.6); CREATINE KINASE 172 UL (21-215); TROPONIN-I 0.027 ng/mL (0.000-0.060)
[2018-04-26] VITALS (28 sets, daily range): BP systolic 61–170; BP diastolic 43–108
[2018-04-26 04:22] LABS: BASOPHILS 0.1 % (0-2); EOSINOPHILS 0.6 % (0-7); HEMATOCRIT 29.9 % (36.0-48.0); HEMOGLOBIN 9.5 g/dL (12-16); IMMATURE GRANULOCYTES 1.2 % (0-5); LYMPHOCYTES 11.3 % (15-50); MCH 29.5 pg (26.0-34.0); MCHC 31.8 g/dL (31.0-37.0); MCV 92.9 fL (80.0-100.0); MEAN PLATELET VOLUME 10.7 fL (7.4-10.4); MONOCYTES 7.1 % (2-11); NEUTROPHILS 79.7 % (40-80); PLATELET COUNT 323 10x3/uL (130-400); RBC 3.22 10x6/uL (4.00-5.40); RDW 13.5 % (11.5-14.5); WBC 14.4 10x3/uL (4.8-10.8)
[2018-04-26 05:03] LABS: ALBUMIN 2.3 g/dL (3.4-5.0); ANION GAP 13.4 mmol/L (8-16); BILIRUBIN - TOTAL 0.33 mg/dL (0.2-1.3); CALCIUM 7.8 mg/dL (8.5-10.1); CARBON DIOXIDE 24.7 mmol/L (21.0-32.0); MAGNESIUM - SERUM 2.2 mg/dL (1.8-2.4); PHOSPHOROUS 5.4 mg/dL (2.5-4.9); POTASSIUM - SERUM 4.1 mmol/L (3.5-5.1)
[2018-04-26 05:08] LABS: CREATININE - SERUM 2.6 mg/dL (0.6-1.3)
[2018-04-26 13:09] LABS: BASOPHILS 0.1 % (0-2); EOSINOPHILS 0.5 % (0-7); HEMATOCRIT 31.3 % (36.0-48.0); IMMATURE GRANULOCYTES 1.3 % (0-5); LYMPHOCYTES 9.2 % (15-50); MCH 29.5 pg (26.0-34.0); MCHC 31.9 g/dL (31.0-37.0); MCV 92.3 fL (80.0-100.0); MEAN PLATELET VOLUME 10.6 fL (7.4-10.4); MONOCYTES 5.3 % (2-11); NEUTROPHILS 83.6 % (40-80); PLATELET COUNT 366 10x3/uL (130-400); RBC 3.39 10x6/uL (4.00-5.40); RDW 13.7 % (11.5-14.5); WBC 15.7 10x3/uL (4.8-10.8)
[2018-04-26 13:24] LABS: ALBUMIN 2.5 g/dL (3.4-5.0); ANION GAP 14.5 mmol/L (8-16); BILIRUBIN - TOTAL 0.25 mg/dL (0.2-1.3); CALCIUM 7.8 mg/dL (8.5-10.1); CARBON DIOXIDE 23.7 mmol/L (21.0-32.0); CREATININE - SERUM 2.4 mg/dL (0.6-1.3); POTASSIUM - SERUM 4.2 mmol/L (3.5-5.1); PROTEIN - SERUM 5.7 g/dL (6.4-8.2)
[2018-04-27] VITALS (24 sets, daily range): BP systolic 112–199; BP diastolic 47–778
[2018-04-27 04:14] LABS: BASOPHILS 0.2 % (0-2); EOSINOPHILS 0.9 % (0-7); HEMATOCRIT 30.5 % (36.0-48.0); HEMOGLOBIN 9.7 g/dL (12-16); IMMATURE GRANULOCYTES 1.5 % (0-5); LYMPHOCYTES 10.9 % (15-50); MCH 29.5 pg (26.0-34.0); MCHC 31.8 g/dL (31.0-37.0); MCV 92.7 fL (80.0-100.0); MEAN PLATELET VOLUME 10.6 fL (7.4-10.4); MONOCYTES 6.6 % (2-11); NEUTROPHILS 79.9 % (40-80); PLATELET COUNT 324 10x3/uL (130-400); RBC 3.29 10x6/uL (4.00-5.40); RDW 13.7 % (11.5-14.5); WBC 11.9 10x3/uL (4.8-10.8)
[2018-04-27 04:29] LABS: ALBUMIN 2.4 g/dL (3.4-5.0); BILIRUBIN - TOTAL 0.31 mg/dL (0.2-1.3); CALCIUM 7.9 mg/dL (8.5-10.1); CREATININE - SERUM 2.2 mg/dL (0.6-1.3); MAGNESIUM - SERUM 2.1 mg/dL (1.8-2.4); PHOSPHOROUS 4.5 mg/dL (2.5-4.9); PROTEIN - SERUM 5.9 g/dL (6.4-8.2)
[2018-04-28] VITALS (22 sets, daily range): BP systolic 125–180; BP diastolic 58–102
[2018-04-28 03:13] LABS: ALP - ISO (ALP) 46 IU/L (39-117); ALP - ISO (BONE) FRACTION 53 % (14-68); ALP - ISO (LIVER) FRACTION 47 % (18-85); ALP - ISO(INTESTINAL) FRACTION 0 % (0-18)
[2018-04-28 03:44] LABS: BASOPHILS 0.2 % (0-2); EOSINOPHILS 1.2 % (0-7); IMMATURE GRANULOCYTES 1.5 % (0-5); LYMPHOCYTES 11.1 % (15-50); MCH 29.6 pg (26.0-34.0); MCHC 31.3 g/dL (31.0-37.0); MEAN PLATELET VOLUME 10.3 fL (7.4-10.4); MONOCYTES 6.6 % (2-11); NEUTROPHILS 79.4 % (40-80); PLATELET COUNT 336 10x3/uL (130-400); RBC 3.38 10x6/uL (4.00-5.40); RDW 13.7 % (11.5-14.5)
[2018-04-28 03:55] LABS: MCV 94.7 fL (80.0-100.0)
[2018-04-28 04:09] LABS: ALBUMIN 2.4 g/dL (3.4-5.0); ANION GAP 12.1 mmol/L (8-16); BILIRUBIN - TOTAL 0.31 mg/dL (0.2-1.3); CALCIUM 8.2 mg/dL (8.5-10.1); CARBON DIOXIDE 24.2 mmol/L (21.0-32.0); CREATININE - SERUM 1.9 mg/dL (0.6-1.3); MAGNESIUM - SERUM 2.2 mg/dL (1.8-2.4); PHOSPHOROUS 4.4 mg/dL (2.5-4.9); POTASSIUM - SERUM 4.3 mmol/L (3.5-5.1); PROTEIN - SERUM 6.1 g/dL (6.4-8.2)
[2018-04-28 16:11] LABS: APPEARANCE CLEAR (CLEAR); BILIRUBIN NEGATIVE (NEGATIVE); COLOR YELLOW (YELLOW); GLUCOSE NEGATIVE (NEGATIVE); KETONE NEGATIVE (NEGATIVE); NITRITE NEGATIVE (NEGATIVE); PROTEIN TRACE mg/dL (NEGATIVE); UROBILINOGEN NORMAL (NORMAL)
[2018-04-28 16:19] LABS: WHITE CELLS - URINE 0-5 /hpf (0-5)
[2018-04-28 16:20] LABS: BACTERIA FEW /hpf (NONE SEEN)
[2018-04-29] VITALS (13 sets, daily range): BP systolic 108–161; BP diastolic 51–99
[2018-04-29 04:24] LABS: BASOPHILS 0.1 % (0-2); EOSINOPHILS 1.1 % (0-7); HEMATOCRIT 32.4 % (36.0-48.0); HEMOGLOBIN 10.1 g/dL (12-16); IMMATURE GRANULOCYTES 0.8 % (0-5); LYMPHOCYTES 13.5 % (15-50); MCH 29.3 pg (26.0-34.0); MCHC 31.2 g/dL (31.0-37.0); MCV 93.9 fL (80.0-100.0); MEAN PLATELET VOLUME 10.4 fL (7.4-10.4); MONOCYTES 5.3 % (2-11); NEUTROPHILS 79.2 % (40-80); PLATELET COUNT 386 10x3/uL (130-400); RBC 3.45 10x6/uL (4.00-5.40); RDW 13.8 % (11.5-14.5); WBC 14.2 10x3/uL (4.8-10.8)
[2018-04-29 05:07] LABS: ALBUMIN 2.5 g/dL (3.4-5.0); BILIRUBIN - TOTAL 0.26 mg/dL (0.2-1.3); CALCIUM 8.7 mg/dL (8.5-10.1); CARBON DIOXIDE 27.2 mmol/L (21.0-32.0); CREATININE - SERUM 1.6 mg/dL (0.6-1.3); MAGNESIUM - SERUM 2.2 mg/dL (1.8-2.4); PHOSPHOROUS 4.2 mg/dL (2.5-4.9); POTASSIUM - SERUM 4.2 mmol/L (3.5-5.1); PROTEIN - SERUM 6.3 g/dL (6.4-8.2)
[2018-04-29] MEDS ORDERED: VALTREX500 MG PO ×2 (17:15→17:17)
[2018-04-29] MEDS ORDERED: ANASTROZOLE1 MG PO (17:16)
[2018-04-29] MEDS ORDERED: EFFEXOR37.5 MG PO (17:16)
[2018-04-30 00:46] VITALS: BP 105/47
[2018-04-30 04:55] VITALS: BP 154/74
[2018-04-30 05:30] LABS: BASOPHILS 0.2 % (0-2); HEMATOCRIT 31.3 % (36.0-48.0); HEMOGLOBIN 9.7 g/dL (12-16); IMMATURE GRANULOCYTES 0.5 % (0-5); MCV 93.4 fL (80.0-100.0); MONOCYTES 5.6 % (2-11); NEUTROPHILS 77.7 % (40-80); PLATELET COUNT 317 10x3/uL (130-400); RBC 3.35 10x6/uL (4.00-5.40); RDW 13.6 % (11.5-14.5)
[2018-04-30 05:37] LABS: WBC 10.1 10x3/uL (4.8-10.8)
[2018-04-30 05:58] LABS: ANION GAP 9.7 mmol/L (8-16); CALCIUM 8.5 mg/dL (8.5-10.1); CARBON DIOXIDE 29.3 mmol/L (21.0-32.0); CREATININE - SERUM 1.5 mg/dL (0.6-1.3); MAGNESIUM - SERUM 2.4 mg/dL (1.8-2.4)
[2018-04-30 08:49] VITALS: BP 146/55
[2018-04-30 15:56] VITALS: BP 146/59
[2018-04-30 20:26] VITALS: BP 167/62
[2018-05-01 03:56] LABS: BASOPHILS 0.2 % (0-2); EOSINOPHILS 1.1 % (0-7); HEMOGLOBIN 9.9 g/dL (12-16); IMMATURE GRANULOCYTES 0.8 % (0-5); LYMPHOCYTES 15.1 % (15-50); MCHC 30.9 g/dL (31.0-37.0); MCV 93.8 fL (80.0-100.0); MEAN PLATELET VOLUME 10.2 fL (7.4-10.4); NEUTROPHILS 76.8 % (40-80); PLATELET COUNT 355 10x3/uL (130-400); RBC 3.41 10x6/uL (4.00-5.40); RDW 13.7 % (11.5-14.5); WBC 10.2 10x3/uL (4.8-10.8)
[2018-05-01 04:31] LABS: ALBUMIN 2.4 g/dL (3.4-5.0); ANION GAP 10.1 mmol/L (8-16); BILIRUBIN - TOTAL 0.32 mg/dL (0.2-1.3); CALCIUM 8.6 mg/dL (8.5-10.1); CARBON DIOXIDE 31.1 mmol/L (21.0-32.0); CREATININE - SERUM 1.4 mg/dL (0.6-1.3); MAGNESIUM - SERUM 2.4 mg/dL (1.8-2.4); POTASSIUM - SERUM 4.2 mmol/L (3.5-5.1); PROTEIN - SERUM 6.1 g/dL (6.4-8.2)
[2018-05-01 04:49] VITALS: BP 123/61
[2018-05-01 09:11] VITALS: BP 120/57
[2018-05-01 12:18] VITALS: BP 145/50
[2018-05-01] MEDS ORDERED: AMPICILLIN TRI500 MG PO (15:27)
== END 2018-05-01 16:32 | DRG 871 ==
LOC: D.ER 19:33 → D.EDHOLD 21:19 → D.ICU 21:19 → D.MS 21:19 → D.ICU 04-24 14:04 → D.SDCHOLD 04-26 06:38 → D.MS 04-29 20:05
PROVIDERS: Family Medicine; Internal Medicine; Internal Medicine Cardiovascular Disease
DX: A41.9 Sepsis, unspecified organism (principal); J18.9 Pneumonia, unspecified organism; I46.9 Cardiac arrest, cause unspecified; I50.31 Acute diastolic (congestive) heart failure; J96.01 Acute respiratory failure with hypoxia; N39.0 Urinary tract infection, site not specified; I42.9 Cardiomyopathy, unspecified; I13.0 Hypertensive heart and chronic kidney disease with heart failure and stage 1 through stage 4 chronic kidney disease, or unspecified chronic kidney disease; N17.9 Acute kidney failure, unspecified; E11.22 Type 2 diabetes mellitus with diabetic chronic kidney disease; N18.9 Chronic kidney disease, unspecified; M81.0 Age-related osteoporosis without current pathological fracture; I48.2 Chronic atrial fibrillation; I25.10 Atherosclerotic heart disease of native coronary artery without angina pectoris; E78.5 Hyperlipidemia, unspecified; K21.9 Gastro-esophageal reflux disease without esophagitis; E03.9 Hypothyroidism, unspecified; K59.00 Constipation, unspecified; N13.9 Obstructive and reflux uropathy, unspecified; I45.81 Long QT syndrome; R00.1 Bradycardia, unspecified; T44.7X5A Adverse effect of beta-adrenoreceptor antagonists, initial encounter; G89.29 Other chronic pain; M54.9 Dorsalgia, unspecified; I27.20 Pulmonary hypertension, unspecified; R53.81 Other malaise; B96.20 Unspecified Escherichia coli [E. coli] as the cause of diseases classified elsewhere

== ENCOUNTER 2018-05-01 16:31 | Inpatient (IN) | payer MEDICARE, OTHER ==
[~2018-05-01] VITALS: Ht 152.4 cm; Wt 88.6 kg
--- NOTE | ~2018-05-01 | RHP ---
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 HISTORY OF PRESENT ILLNESS: The patient is admitted to the inpatient rehab for a neurological disorder with CHF myopathy. She is an 82-year-old female patient who presents to the ED 2 days after having fever, chills, episodic nausea and vomiting, diffuse abdominal pain, constipation. She was admitted with pneumonia and had a urinary tract infection and bacteremia. She was found to be in and out of atrial fib with a rapid ventricular response. She was placed on amiodarone. Her heart rate was in the 30s. Her initial troponin was borderline elevated and her EKG was abnormal. The patient was noted to have torsades with ventricular tachycardia and code blue was called. The patient was shocked, the patient woke up, was admitted, was placed on BiPAP and transferred to the intensive care unit. She was started on Betapace on admit to regulate her AFib. On 04/24/2018, the patient was feeling well, but began to have episodes of varying heart rate, with extreme bradycardia, with extreme tachycardia until the time she had respiratory distress and a code was called. She was transferred to the ICU when she was there on 04/29/2018 and then she was transferred out to the floor. She is currently on telemetry, has a Gil cath. She is on 4 liters of nasal cannula O2. She has chest pain, which has caused her to be coded twice. She has proximal muscle weakness, her ProBNP continues to be elevated, but is down from what it originally was. She is on IV Lasix, monitoring her in's and outs closely. She lives in an apartment at [facility] with her , was moderately independent with use of rolling walker mobility and independent with ADLs, currently set up for mod assist for ADLs, mod assist to total assist for mobility. Comorbidities include a Gil catheter, telemetry, IV antibiotics, IV Lasix for CHF. She is on O2. She has increased weakness with self-care deficits and decreased mobility. She and her are hopefully get her back to her prior level of functioning prior to returning back out there. Comorbidities in this patient include hypoxic respiratory failure, acute diastolic CHF, left community-acquired pneumonia, pleural effusion, moderate pulmonary hypertension, QT prolongation, arrhythmia, constipation, chronic atrial fib, chronic kidney disease, diabetes, hypothyroidism, pneumonia, hypertension, cardiopulmonary arrest, bacteremia, anemia, elevated TSH, chronic kidney disease, and constipation. PAST MEDICAL HISTORY: Significant for chronic AFib, peripheral neuropathy, fibromyalgia, diabetes, hyperlipidemia, gastroesophageal reflux disease, hypothyroidism, hypertension, chronic kidney disease, coronary artery disease, chronic back pain, UTI, arthritis, osteoporosis, chronic constipation, got a past history of tobacco use. PAST SURGICAL HISTORY: Includes cataract surgery, hysterectomy, esophageal dilatation times 2, IVC filter, patellar repair, lumbar laminectomy times 2 and knee surgery. ALLERGIES: No known drug allergies. HISTORY AND PHYSICAL [id number] JANICE ISABEL CURRENT MEDICATIONS: Include vancomycin, she is on a gram every 24 hours. She is on Effexor 37.5 mg daily, Valtrex 500 mg daily, lisinopril 10 mg daily, Synthroid 25 mcg daily, furosemide 40 mg daily, omega 3 one cap daily, ferrous sulfate 325 daily, Arimidex 1 mg daily, Norvasc 10 mg daily, Cordarone 50 mg daily, Protonix 40 mg at bedtime, Savella 50 mg b.i.d. She is on melatonin 9 mg at bedtime, [place] 1 tab every 8 hours p.r.n., Neurontin 300 mg t.i.d., TriCor 145 mg at bedtime, Pepcid 20 mg b.i.d., Lunesta 2 mg at bedtime and Eliquis 5 mg b.i.d. HABITS: Does have a history of tobacco use, but not currently. FAMILY HISTORY: Noncontributory. SOCIAL HISTORY: The patient hopes to return back home to [facility] with her . REVIEW OF SYSTEMS: GENERAL: She does complain of weakness and fatigue. HEENT: Denies cold, cough, or congestion. CARDIOVASCULAR: Denies any chest pain at this time, but has had it in the past. PHYSICAL EXAMINATION: VITAL SIGNS: Stable. She is afebrile. GENERAL: A somewhat obese female, in no acute distress upon exam. HEENT: Normocephalic and atraumatic. Mucosa moist. NECK: Supple. No lymphadenopathy. LUNGS: Clear in upper tom. HEART: Irregular rate and rhythm. ABDOMEN: Benign. EXTREMITIES: No clubbing, cyanosis or edema. NEUROLOGIC: She does have noted weakness. LABORATORY DATA: White count is 7.1, H&H is 9.8 and 31.8, and platelet count was noted to be 351. Her sodium is 140, potassium 4.0, BUN and creatinine 24 and 1.4 and blood sugar is noted to be 125. ASSESSMENT: This is an 82-year-old female patient admitted to rehab with a working diagnosis of congestive heart failure induced myopathy, complicated by code blue times 2 in the hospital. The patient has potential to make improvement. We instituted the following multidisciplinary therapies including, but not limited to physical, occupational, respiratory, speech, nutritional services, prosthetics and orthotics. Given her complex medical condition and risk for more complications, rehabilitation services cannot be provided at a low level of care such as [facility] facility. PLAN: 1. Admit to [facility] services for intensive inpatient therapy to include the following disciplines: A. Physical therapy to improve gait, all transfer skills and bed mobility to a modified independent level. B. Occupational therapy to a modified independent level. C. Case management to assist with discharge planning and placement options. D. Nutrition to assist with nutritional needs. E. Rehabilitation nursing to assist in monitoring the patient's underlying medical conditions and to assist with any type of bowel or bladder management. HISTORY AND PHYSICAL [id number] JANICE ISABEL 2. The patient's current medication and medical care will be continued. 3. The patient will be placed on standard fall precautions. 4. The patient's estimated length of stay is approximately 7 to 10 days. 5. We will discuss this patient during care team staff meeting this week. TRANSINT:[id number] Voice Confirmation ID: [id number] DOCUMENT ID: [id number] MAC notes whether there has been none or any medical/functional change since admission: - No change since preadmission screen. MAC attests patient continues to be appropriate for IRF: - Continues to be appropriate. MONIQUE MOLINA MD at 1845 CC: [id number] DICTATION DATE: 05/02/18821 HEAD FILTER PRESS TENDER: 05/02/18 0902 ADM IN [place] [id number] [place] [address]
[~2018-05-01 16:31] MED LIST changes: +AMPICILLIN TRI500 MG PO; +ANASTROZOLE1 MG PO; +ARMOUR THYROID60 M1; +EFFEXOR37.5 MG PO; +ELIQUIS5 MG PO; +FUROSEMIDE40 MG PO; +MELATONIN10 M1 PO; +PEPCID AC20 MG PO; +PROTONIX40 MG PO; +SYNTHROID25 MCG PO; +TRICOR145 MG PO; +VALTREX500 MG PO
[2018-05-01 17:45] VITALS: BP 146/52
[2018-05-01 18:00] VITALS: BP 107/83
[2018-05-02 07:07] LABS: BASOPHILS 0.4 % (0-2); EOSINOPHILS 1.7 % (0-7); HEMATOCRIT 31.8 % (36.0-48.0); HEMOGLOBIN 9.8 g/dL (12-16); IMMATURE GRANULOCYTES 0.6 % (0-5); LYMPHOCYTES 16.7 % (15-50); MCH 29.1 pg (26.0-34.0); MCHC 30.8 g/dL (31.0-37.0); MCV 94.4 fL (80.0-100.0); MEAN PLATELET VOLUME 10.3 fL (7.4-10.4); MONOCYTES 7.6 % (2-11); PLATELET COUNT 351 10x3/uL (130-400); RBC 3.37 10x6/uL (4.00-5.40); RDW 13.6 % (11.5-14.5)
[2018-05-02 07:08] LABS: ANION GAP 6.2 mmol/L (8-16); CALCIUM 8.4 mg/dL (8.5-10.1); CARBON DIOXIDE 33.8 mmol/L (21.0-32.0); CREATININE - SERUM 1.4 mg/dL (0.6-1.3)
[2018-05-02 07:10] LABS: WBC 7.1 10x3/uL (4.8-10.8)
[2018-05-02 07:47] VITALS: BP 160/60
[2018-05-02 13:08] VITALS: Ht 152.4 cm; Wt 88.6 kg
[2018-05-02 19:00] VITALS: BP 128/48
[2018-05-03 07:02] LABS: BASOPHILS 0.4 % (0-2); EOSINOPHILS 1.4 % (0-7); HEMATOCRIT 33.2 % (36.0-48.0); HEMOGLOBIN 10.3 g/dL (12-16); IMMATURE GRANULOCYTES 0.6 % (0-5); LYMPHOCYTES 19.3 % (15-50); MCH 28.9 pg (26.0-34.0); MEAN PLATELET VOLUME 10.1 fL (7.4-10.4); MONOCYTES 6.7 % (2-11); NEUTROPHILS 71.6 % (40-80); PLATELET COUNT 393 10x3/uL (130-400); RBC 3.57 10x6/uL (4.00-5.40); RDW 13.4 % (11.5-14.5)
[2018-05-03 07:10] LABS: ANION GAP 10.1 mmol/L (8-16); CALCIUM 8.5 mg/dL (8.5-10.1); CARBON DIOXIDE 32.8 mmol/L (21.0-32.0); CREATININE - SERUM 1.3 mg/dL (0.6-1.3); POTASSIUM - SERUM 3.9 mmol/L (3.5-5.1)
[2018-05-03 07:49] VITALS: BP 156/69
[2018-05-03 19:00] VITALS: BP 166/65
[2018-05-04 08:00] VITALS: BP 148/57
[2018-05-04 19:00] VITALS: BP 153/62
[2018-05-05 06:16] LABS: CALCIUM 8.9 mg/dL (8.5-10.1); CARBON DIOXIDE 35.9 mmol/L (21.0-32.0); CREATININE - SERUM 1.3 mg/dL (0.6-1.3)
[2018-05-05 06:30] LABS: ANION GAP 5.5 mmol/L (8-16); POTASSIUM - SERUM 5.4 mmol/L (3.5-5.1)
[2018-05-05 06:33] LABS: BASOPHILS 0.3 % (0-2); EOSINOPHILS 0.9 % (0-7); HEMOGLOBIN 10.1 g/dL (12-16); IMMATURE GRANULOCYTES 1.2 % (0-5); LYMPHOCYTES 22.6 % (15-50); MCH 28.5 pg (26.0-34.0); MCHC 30.6 g/dL (31.0-37.0); MCV 93.2 fL (80.0-100.0); MEAN PLATELET VOLUME 10.3 fL (7.4-10.4); MONOCYTES 9.6 % (2-11); NEUTROPHILS 65.4 % (40-80); PLATELET COUNT 354 10x3/uL (130-400); RBC 3.54 10x6/uL (4.00-5.40); RDW 13.4 % (11.5-14.5); WBC 6.7 10x3/uL (4.8-10.8)
[2018-05-05 08:00] VITALS: BP 171/65
[2018-05-05 19:00] VITALS: BP 165/66
[2018-05-06 06:48] LABS: BASOPHILS 0.3 % (0-2); EOSINOPHILS 1.2 % (0-7); HEMATOCRIT 34.3 % (36.0-48.0); HEMOGLOBIN 10.5 g/dL (12-16); IMMATURE GRANULOCYTES 0.6 % (0-5); LYMPHOCYTES 22.7 % (15-50); MCH 28.8 pg (26.0-34.0); MCHC 30.6 g/dL (31.0-37.0); MEAN PLATELET VOLUME 10.1 fL (7.4-10.4); MONOCYTES 8.5 % (2-11); NEUTROPHILS 66.7 % (40-80); PLATELET COUNT 389 10x3/uL (130-400); RBC 3.65 10x6/uL (4.00-5.40); RDW 13.7 % (11.5-14.5); WBC 6.6 10x3/uL (4.8-10.8)
[2018-05-06 07:05] LABS: ANION GAP 7.8 mmol/L (8-16); CALCIUM 8.7 mg/dL (8.5-10.1); CARBON DIOXIDE 33.4 mmol/L (21.0-32.0); CREATININE - SERUM 1.5 mg/dL (0.6-1.3)
[2018-05-06 07:06] LABS: POTASSIUM - SERUM 4.2 mmol/L (3.5-5.1)
[2018-05-06 07:25] VITALS: BP 147/54
[2018-05-06 20:22] VITALS: BP 167/61
[2018-05-07 07:10] VITALS: BP 150/55
[2018-05-08 05:37] LABS: BASOPHILS 0.4 % (0-2); EOSINOPHILS 2.3 % (0-7); HEMATOCRIT 32.5 % (36.0-48.0); HEMOGLOBIN 10.5 g/dL (12-16); IMMATURE GRANULOCYTES 0.4 % (0-5); LYMPHOCYTES 33.1 % (15-50); MCHC 32.3 g/dL (31.0-37.0); MCV 92.9 fL (80.0-100.0); MEAN PLATELET VOLUME 9.9 fL (7.4-10.4); MONOCYTES 6.6 % (2-11); NEUTROPHILS 57.2 % (40-80); RDW 13.9 % (11.5-14.5)
[2018-05-08 05:45] LABS: PLATELET COUNT 276 10x3/uL (130-400); WBC 4.7 10x3/uL (4.8-10.8)
[2018-05-08 05:47] LABS: CALCIUM 8.4 mg/dL (8.5-10.1); CREATININE - SERUM 1.5 mg/dL (0.6-1.3)
[2018-05-08 07:51] VITALS: BP 158/63
[2018-05-08 19:06] VITALS: BP 149/61
[2018-05-09 07:45] VITALS: BP 156/68
[2018-05-09] MEDS ORDERED: HYDROCODONE-APA1 TAB PO (09:08)
== END 2018-05-09 12:19 | disposition home health service (06) | DRG 91 ==
LOC: D.REHAB 16:31
PROVIDERS: Emergency Medicine
DX: G72.89 Other specified myopathies (principal); I50.31 Acute diastolic (congestive) heart failure; J96.01 Acute respiratory failure with hypoxia; J18.9 Pneumonia, unspecified organism; I46.9 Cardiac arrest, cause unspecified; I13.0 Hypertensive heart and chronic kidney disease with heart failure and stage 1 through stage 4 chronic kidney disease, or unspecified chronic kidney disease; J90 Pleural effusion, not elsewhere classified; N39.0 Urinary tract infection, site not specified; R78.81 Bacteremia; N18.9 Chronic kidney disease, unspecified; E11.22 Type 2 diabetes mellitus with diabetic chronic kidney disease; I27.20 Pulmonary hypertension, unspecified; I25.10 Atherosclerotic heart disease of native coronary artery without angina pectoris; G89.29 Other chronic pain; M81.0 Age-related osteoporosis without current pathological fracture; K59.09 Other constipation; E03.9 Hypothyroidism, unspecified; D64.9 Anemia, unspecified; I48.2 Chronic atrial fibrillation; E11.65 Type 2 diabetes mellitus with hyperglycemia

== ENCOUNTER → 2018-05-17 09:06 | Outpatient (CLI) | payer MEDICARE, OTHER ==
[2018-05-02 13:08] VITALS: BMI 40.0
== END | disposition home or self-care (01) ==
LOC: D.US 09:06
DX: E11.22 Type 2 diabetes mellitus with diabetic chronic kidney disease (principal); I12.9 Hypertensive chronic kidney disease with stage 1 through stage 4 chronic kidney disease, or unspecified chronic kidney disease; N18.3 Chronic kidney disease, stage 3 (moderate)